=== PATIENT | male | born 1990 | race Caucasian/White ===

== ENCOUNTER 2021-08-10 08:56 | Emergency (ER) | payer OTHER ==
[~2021-08-10] VITALS: Ht 182.9 cm; Wt 86.2 kg
[~2021-08-10 08:56] MED LIST: IBUP800 PO
== END 2021-08-10 12:13 | disposition home or self-care (01) ==
LOC: ER 08:56
DX: S61.211A Laceration without foreign body of left index finger without damage to nail, initial encounter (principal); W26.8XXA Contact with other sharp object(s), not elsewhere classified, initial encounter; Z23 Encounter for immunization
CPT/HCPCS: 73140; 90714

== ENCOUNTER 2024-08-02 19:48 | Emergency (ER) | payer OTHER ==
[~2024-08-02] VITALS: Ht 182.9 cm; Wt 79.4 kg
[2024-08-02 21:30] VITALS: BP 128/78
== END 2024-08-02 21:36 | disposition home or self-care (01) ==
LOC: ER 19:48
DX: L02.11 Cutaneous abscess of neck (principal)
CPT/HCPCS: 10060; 99282-25

== ENCOUNTER 2024-10-23 22:36 | Emergency (ER) | payer OTHER ==
[~2024-10-23] VITALS: Ht 182.9 cm; Wt 77.1 kg
[2024-10-23 22:41] VITALS: BP 114/87
[2024-10-23] MEDS ORDERED: Ketorolac Tromethamine 15mg Vial IM ONE (23:50)
[2024-10-23] MEDS ORDERED: RX Prepack 6 Tabs Oxycodone 5mg UD ONE (23:50)
[2024-10-24] MEDS ORDERED: AMOCLA875 PO (00:29)
[2024-10-26] MEDS ORDERED: AMOCLA875 PO (14:26)
[2024-11-01] MEDS ORDERED: DOCUZEN 8.6-501 EACH PO (11:22)
[2024-11-01] MEDS ORDERED: NICO21TP TOP (11:23)
[2024-11-01] MEDS ORDERED: VISBIOME 112.51 EACH PO (11:24)
[2024-11-01] MEDS ORDERED: OXAYDO5 M2 PO (11:24)
[2024-11-01] MEDS ORDERED: Cefadroxil500 MG PO (11:25)
== END 2024-10-24 00:45 | disposition home or self-care (01) ==
LOC: ER 22:36
DX: S81.851A Open bite, right lower leg, initial encounter (principal); S91.351A Open bite, right foot, initial encounter; S61.052A Open bite of left thumb without damage to nail, initial encounter; S61.256A Open bite of right little finger without damage to nail, initial encounter; W54.0XXA Bitten by dog, initial encounter
CPT/HCPCS: 12002; 73140; 73590; 73630; 96372; 99283-25; A9270; J1885